=== PATIENT | female | born 1990 | race Caucasian/White ===

== ENCOUNTER 2023-08-20 16:20 | Emergency (ER) | payer MEDICAID ==
[~2023-08-20] VITALS: Ht 157.5 cm; Wt 62.0 kg
[2023-08-20 16:49] VITALS: O2SAT 97
[2023-08-20] MEDS ORDERED: ACETAMINOPHEN 325MG TABLET PO ONE (17:30)
[2023-08-20 18:26] VITALS: BP 125/69; PULSE 100; RESP 18; TEMP 99.7
== END 2023-08-20 19:48 | disposition left against medical advice (07) ==
LOC: EDSEX 16:20 → ER 16:20
DX: R05.9 Cough, unspecified (principal)
CPT/HCPCS: 99282